=== PATIENT | female | born 1995 | race American Indian/Alaskan Native ===

== ENCOUNTER 2020-10-03 18:19 | Outpatient (CLI) | payer MEDICAID ==
[2020-10-03 19:04] VITALS: BP 128/77
--- NOTE | 2020-10-03 21:03 | Ultrasound Report ---
BIOPHYSICAL PROFILE breathing movements: 2/2 movements: 2/2 posture and tone tone: 2/2 Qualitative amniotic fluid volume: 2/2 heart rate: 130 bpm position: Cephalic Placenta: Anterior and fundal and free of the internal cervical os Total score: 8/8, within normal limits Signer Name: Selwyn Abraham MD Signed: 10/03/2020 8:58 PM Workstation Name: [email or web address]
== END 2020-10-03 20:31 | disposition home or self-care (01) ==
LOC: TRG 18:19 → APU 18:50 → TRG 20:31
DX: O36.8130 Decreased fetal movements, third trimester, not applicable or unspecified (principal); Z3A.38 38 weeks gestation of pregnancy
CPT/HCPCS: 59025; 76819

== ENCOUNTER 2020-10-06 12:59 | Outpatient (CLI) | payer MEDICAID ==
[2020-10-06] MEDS ORDERED: ACETAMINOPHEN 500 MG TAB PO ONE (14:30)
[2020-10-06 14:43] VITALS: BP 125/80
--- NOTE | 2020-10-06 16:28 | Event Note ---
Date: 10/06/20 Late entry: Nurse called me about patient prior to discharge and told me patient was not in labor (no cervical change) with reactive NST and normal BPs so patient was discharged home. I came back to hospital from office and reviewed BPs and saw that patient had had several elevated ones. Called patient on the phone and asked her to come back in to hospital for preeclamptic labs. Patient states she will come back to [facility] right away.
== END 2020-10-06 15:20 | disposition home or self-care (01) ==
LOC: TRG 12:59 → APU 13:01 → TRG 15:20
DX: Z34.93 Encounter for supervision of normal pregnancy, unspecified, third trimester (principal); Z3A.39 39 weeks gestation of pregnancy
CPT/HCPCS: 59025

== ENCOUNTER 2020-10-06 17:34 | Inpatient (IN) | payer MEDICAID ==
[2020-10-06 18:34] LABS: Amphetamine Screen,Urine PRESUMPTIVE NEGATIVE; Benzodiazepines Screen,Urine PRESUMPTIVE NEGATIVE; Cannabinoid Screen,Urine PRESUMPTIVE NEGATIVE; Cocaine Screen,Urine PRESUMPTIVE NEGATIVE; Methadone Screen,Urine PRESUMPTIVE NEGATIVE; Opiate Screen,Urine PRESUMPTIVE NEGATIVE
[2020-10-06 18:39] LABS: Bacteria,Urine 1+ /HPF (Negative); Bilirubin,Urine NEG (Negative); Blood,Urine SM (Negative); Color,Urine Yellow (Yellow); Protein,Urine <15 mg/dL mg/dL (Negative)
[2020-10-06 19:10] LABS: Basophils % (Auto) 0.2 % (0.0-1.8); Eosinophils # (Auto) 0.1 K/mm3 (0.0-0.4); Eosinophils % (Auto) 0.9 % (0.0-4.3); Hemoglobin 11.3 gm/dl (10.1-14.3); Lymphocytes # (Auto) 2.2 K/mm3 (1.2-5.4); Lymphocytes % (Auto) 20.9 % (13.4-35.0); Mean Corpuscular HGB Conc 33 % (30-34); Mean Corpuscular Volume 76 fl (79-97); Monocytes # (Auto) 0.5 K/mm3 (0.0-0.8); Monocytes % (Auto) 4.6 % (0.0-7.3); Platelet Count 262 K/mm3 (140-440); Red Blood Count 4.48 M/mm3 (3.65-5.03); Red Cell Distribution Width 17.6 % (13.2-15.2)
[2020-10-06 19:38] LABS: Alanine Aminotransferase 8 units/L (7-56); Albumin 3.5 g/dL (3.9-5); Blood Urea Nitrogen 5 mg/dL (7-17); Calcium 9.2 mg/dL (8.4-10.2); Hemolysis Index 9; Uric Acid 6.3 mg/dL (3.5-7.6)
[2020-10-06] MEDS ORDERED: fentaNYL 100 MCG/2 ML INJ IV PRN (19:46)
[2020-10-06] MEDS ORDERED: LOPERAMIDE 2 MG CAP PO PRN (19:46)
[2020-10-06] MEDS ORDERED: METHYLERGONOVINE MALEATE 0.2 MG/ML VIAL IM PRN (19:46)
[2020-10-06] MEDS ORDERED: CARBOPROST TROMETHAMINE 250 MCG/1 ML INJ IM PRN (19:46)
[2020-10-06] MEDS ORDERED: LIDOCAINE (2%) 20 MG/1 ML VIAL 20 ML MDV INFILTRATI ONE (19:46)
[2020-10-06] MEDS ORDERED: miSOPROStol 200 MCG TAB PR PRN (19:46)
[2020-10-06] MEDS ORDERED: ePHEDrine SULFATE 50 MG/1 ML INJ IV PRN (19:46)
[2020-10-06] MEDS ORDERED: TERBUTALINE 1 MG/1 ML INJ SUB-Q PRN (19:46)
[2020-10-06] MEDS ORDERED: OXYTOCIN 10 UNIT/1 ML INJ IM PRN (19:46)
[2020-10-06] MEDS ORDERED: ONDANSETRON 4 MG/2 ML INJ IV PRN (19:46)
[2020-10-06] MEDS ORDERED: ACETAMINOPHEN 325 MG TAB PO PRN (19:46)
[2020-10-06] MEDS ORDERED: BUTORPHANOL 2 MG/1 ML INJ IV PRN (19:46)
--- NOTE | 2020-10-06 19:58 | History and Physical Report ---
History of Present Illness Date of examination: 10/06/20 Date of admission: 10/06/20 Chief complaint: Contractions History of present illness: 25 year old presents to L&D with complaint of contractions. Patient denies LOF or vaginal bleeding. Patient reports active movement. Patient received care at [facility] and records are available. LMP unknown. EDC 10/13/20 (based on 12 week, 4 day US). 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 Blood type B+, antibody screen negative, rubella immune, RPR nonreactive, hepatitis B surface antigen negative, hepatitis C antibody negative, HIV negative, 1 hour sugar test 104 (repeat 127), chlamydia negative, gonorrhea negative, trichomonas negative, AFP negative, GBS negative. Past History Past Medical History: other (obesity, HSV 2, unbilical hernia) Past Surgical History: cholecystectomy, other (cyst removed left axilla, laparoscopy for ovarian cyst) [employer] History: herpes (on Valtrex for suppression; denies lesions or prodromal symptoms). denies: chlamydia, gonorrhea, hepatitis B, hepatitis C, HIV, syphilis, trichomonas Family/Genetic History: diabetes, hypertension, other (arthitis, asthma, thyroid disease) Social history: no significant social history, full code. denies: smoking, alcohol abuse, prescription drug abuse, IV drug use - Obstetrical History Expected Date of Delivery: 10/13/20 Actual Gestation: 39 Week(s) 0 Day(s) : 3 Para: 2 Hx # Term Pregnancies: 2 Number of Pregnancies: 0 Spontaneous Abortions: 0 Induced : 0 Number of Living Children: 2 Medications and Allergies Allergies Allergy/AdvReac Type Severity Reaction Status Date / Time No Known Allergies Allergy Verified 10/06/20 13:29 Active Meds: Active Medications Acetaminophen (Acetaminophen 325 Mg Tab) 650 mg PO Q4H PRN PRN Reason: Pain, Mild (1-3) Butorphanol Tartrate (Butorphanol 2 Mg/1 Ml Inj) 1 mg IV Q2H PRN PRN Reason: Pain, Moderate(4-6) LABOR PAIN Carboprost Tromethamine (Carboprost Tromethamine 250 Mcg/1 Ml Inj) 250 mcg IM ONCE PRN PRN Reason: Uterine Bleeding Ephedrine Sulfate (Ephedrine Sulfate 50 Mg/1 Ml Inj) 10 mg IV Q2M PRN PRN Reason: Hypotension Fentanyl (Fentanyl 100 Mcg/2 Ml Inj) 100 mcg IV Q2H PRN PRN Reason: Pain,Severe (7-10) LABOR PAIN Oxytocin/Sodium Chloride (Pitocin/Ns 30 Unit/500ml) 30 units in 500 mls @ 2 mls/hr IV TITR CHUCKIE; Protocol Lactated Ringer's (Lactated Ringers) 1,000 mls @ 125 mls/hr IV DIRECT CHUCKIE Oxytocin/Sodium Chloride (Pitocin/Ns 30 Unit/500ml) 30 units in 500 mls @ 40 mls/hr IV TITR CHUCKIE; Protocol Lidocaine (Lidocaine (2%) 20 Mg/1 Ml Vial 20 Ml Mdv) 20 ml INFILTRATI ONCE ONE Stop: 10/06/20 19:47 Loperamide HCl (Loperamide 2 Mg Cap) 2 mg PO ONCE PRN PRN Reason: give with Hemabate Methylergonovine Maleate (Methylergonovine Maleate 0.2 Mg/Ml Vial) 0.2 mg IM ONCE PRN PRN Reason: Uterine Bleeding Misoprostol (Misoprostol 200 Mcg Tab) 800 mcg MN ONCE PRN PRN Reason: Uterine Bleeding Ondansetron HCl (Ondansetron 4 Mg/2 Ml Inj) 4 mg IV Q8H PRN PRN Reason: Nausea And Vomiting Oxytocin (Oxytocin 10 Unit/1 Ml Inj) 10 unit IM ONCE PRN PRN Reason: Uterine Bleeding Terbutaline Sulfate (Terbutaline 1 Mg/1 Ml Inj) 0.25 mg SUB-Q ONCE PRN PRN Reason: Hyperstimulation/Hypertonicity Review of Systems All systems: negative (contractions) - Vital Signs Vital signs: Vital Signs Temp Pulse Resp BP Pulse Ox 98.3 F 98 H 20 121/78 99 10/06/20 17:56 10/06/20 17:56 10/06/20 17:56 10/06/20 17:56 10/06/20 17:56 Temp Pulse Resp BP Pulse Ox 98.3 F 90 20 121/73 99 10/06/20 17:56 10/06/20 19:33 10/06/20 17:56 10/06/20 19:33 10/06/20 19:21 - Physical Exam Abdomen: Positive: normal appearance, soft. Negative: distention, tenderness, guarding, rigidity Genitourinary (Female): Positive: normal external genitalia, normal perenium. Negative: perineal/vulvar lesions (no lesions noted on careful exam with bright light upon admission) Vagina: Positive: normal moisture Uterus: Positive: enlarged. Negative: tender Anus/Rectum: Positive: normal perianal skin Extremities: Positive: normal. Negative: tenderness, edema - Obstetrical FHR: category 1 Uterine Contraction Monitor Mode: External Cervical Dilatation: 5 Cervical Effacement Percentage: 60 station: -3 Uterine Contraction Pattern: Regular Uterine Contraction Intensity: Mild Results Result Diagrams: 10/06/20 Unknown 10/06/20 Unknown Abnormal lab results 10/06/20 10/06/20 Range/Units Unknown Unknown MCV 76 L (79-97) fl MCH 25 L (28-32) pg RDW 17.6 H (13.2-15.2) % Seg Neutrophils % 73.4 H (40.0-70.0) % Sodium 135 L (137-145) mmol/L BUN 5 L (7-17) mg/dL Glucose 102 H (65-100) mg/dL Lactate Dehydrogenase 238 H (91-180) units/L Albumin 3.5 L (3.9-5) g/dL All other labs normal. Assessment and Plan A: at 39 weeks gestation. Labor. GBS negative. HSV 2 positive, on Valtrex suppression. Class 3 obesity. Several mildly elevated blood pressures. P: Admit. EFM. Preeclamptic labs. Continue Valtrex suppression of HSV. Pitocin augmentation of labor.
[2020-10-06 20:00] LABS: BUN/Creatinine Ratio 8
[2020-10-06] MEDS ORDERED: OXYTOCIN DRIP 30 UNITS/500 ML BAG IV SCH ×2 (20:00)
[2020-10-06] MEDS: valACYclovir 500 MG TAB PO SCH (21:42)
[2020-10-06] MEDS: LACTATED RINGERS 1,000 ML IV SCH (23:09)
[2020-10-07] MEDS ORDERED: ePHEDrine SULFATE 50 MG/1 ML INJ IV PRN (00:01)
[2020-10-07] MEDS ORDERED: NALOXONE 2 MG/2 ML INJ IV PRN (00:01)
--- NOTE | 2020-10-07 00:03 | Anesthesia Consultation ---
Anesthesia Consult and Med Hx Date of service: 10/07/20 - Airway Anesthetic Teeth Evaluation: Good ROM Head & Neck: Adequate Mental/Hyoid Distance: Adequate Mallampati Class: Class III Intubation Access Assessment: Possibly Difficult - Pulmonary Exam CTA: Yes - Cardiac Exam Cardiac Exam: RRR - Pre-Operative Health Status ASA Pre-Surgery Classification: ASA3 Proposed Anesthetic Plan: Epidural - Pulmonary Hx Smoking: No Hx Asthma: No Hx Respiratory Symptoms: No SOB: No COPD: No Home Oxygen Therapy: No Hx Pneumonia: No Hx Sleep Apnea: No - Cardiovascular System Hx Hypertension: No Hx Coronary Artery Disease: No Hx Heart Attack/AMI: No Hx Angina: No Hx Percutaneous Transluminal Coronary Angioplasty (PTCA): No Hx Cardia Arrhythmia: No Hx Pacemaker: No Hx Internal Defibrillator: No Hx Valvular Heart Disease: No Hx Heart Murmur: No Hx Peripheral Vascular Disease: No - Central Nervous System Hx Neuromuscular Disorder: No Hx Seizures: No CVA: No Hx Back Pain: Yes Hx Psychiatric Problems: No - Gastrointestinal Hx Ulcer: No Hx Gastroesophageal Reflux Disease: Yes - Endocrine Hx Renal Disease: No Hx End Stage Renal Disease: No Hx Cirrhosis: No Hx Liver Disease: No Hx Insulin Dependent Diabetes: No Hx Non-Insulin Dependent Diabetes: No Hx Thyroid Disease: No Hx Hypothyroidism: No Hx Hyperthyroidism: No - Hematic Hx Anemia: No Hx Sickle Cell Disease: No - Other Systems Hx Alcohol Use: No Hx Substance Use: No Hx Cancer: No Hx Obesity: Yes
--- NOTE | 2020-10-07 00:05 | Progress Note ---
Labor Epidural - Labor Epidural Start Time: 23:22 Stop Time: 23:39 Performed by:: SARAY CHAVEZ Procedure: Patient is requesting a laboring epidural for laboring pain. Patient IDed, H&P reviewed, all questions and concerns were answered, and consent was signed. Timeout was performed at bedside. Patient in sitting position. Sterile prep and drape was performed. [3] ml of 1% lidocaine skin wheal at L[3]- L [4]. 18- gauge Farman epidural needle was advanced to loss of resistance with saline technique 8cm. Negative CSF negative blood. Epidural catheter advanced to [12] centimeters. [NEGATIVE] Aspiration [NEGATIVE] test dose. Sterile dressing applied. Patient tolerated procedure.
[2020-10-07] MEDS: LACTATED RINGERS 1,000 ML IV SCH ×3 (00:17→08:25)
[2020-10-07] MEDS ORDERED: fentaNYL-BUPIV 2 MCG/ML-0.125% 200 MCG/100 ML BAG EPIDURAL SCH (01:00)
[2020-10-07] MEDS ORDERED: CALCIUM CARBONATE 500 MG TAB CHEW PO ONE (05:36)
[2020-10-07] MEDS: valACYclovir 500 MG TAB PO SCH ×2 (09:08→22:11)
[2020-10-07 09:49] LABS: Bacteria,Urine 1+ /HPF (Negative); Bilirubin,Urine NEG (Negative); Blood,Urine SM (Negative); Color,Urine Yellow (Yellow); Protein,Urine <15 mg/dL mg/dL (Negative)
[2020-10-07 09:59] LABS: Hematocrit 31.2 % (30.3-42.9); Hemoglobin 10.2 gm/dl (10.1-14.3); Mean Corpuscular HGB Conc 33 % (30-34); Mean Corpuscular Volume 76 fl (79-97); Platelet Count 244 K/mm3 (140-440); Red Blood Count 4.13 M/mm3 (3.65-5.03); Red Cell Distribution Width 17.5 % (13.2-15.2)
[2020-10-07 10:15] LABS: Uric Acid 6.3 mg/dL (3.5-7.6)
[2020-10-07 10:16] LABS: Alanine Aminotransferase < 5 units/L (7-56)
[2020-10-07] MEDS ORDERED: PROMETHAZINE 25 MG TAB PO PRN (11:23)
[2020-10-07] MEDS ORDERED: ACETAMINOPHEN 325 MG TAB PO PRN (11:23)
[2020-10-07] MEDS ORDERED: MAGNESIUM HYDROXIDE (MOM) ORAL LIQD UDC PO PRN (11:23)
[2020-10-07] MEDS ORDERED: ONDANSETRON 4 MG/2 ML INJ IV PRN (11:23)
[2020-10-07] MEDS ORDERED: oxyCODONE /ACETAMINOPHEN 5-325MG TAB PO PRN (11:23)
[2020-10-07] MEDS ORDERED: WITCH HAZEL/ GLYCERIN PAD TP PRN (11:23)
[2020-10-07] MEDS ORDERED: diphenhydrAMINE 25 MG CAP PO PRN (11:23)
[2020-10-07] MEDS ORDERED: LANOLIN/ZINC/DIMETHICONE (LANSINOH) 7 GM TP PRN (11:23)
[2020-10-07] MEDS ORDERED: PROMETHAZINE 25 MG RECT SUPP PR PRN (11:23)
--- NOTE | 2020-10-07 11:29 | Procedure Note ---
OB Delivery Note - Delivery Date of Delivery: 10/07/20 Surgeon: RYAN LOONEY JR Estimated blood loss: other (150cc) - Vaginal Delivery presentation: vertex Delivery position: OA Intrapartum events: gestational hypertension Delivery induction: oxytocin Delivery augmentation: pitocin Delivery monitor: external FHT, external uterine Route of delivery: Delivery placenta: spontaneous Delivery cord: nuchal cord (body cord x 1, not reduced) Episiotomy: none Delivery laceration: none Anesthesia: epidural Delivery comments: Spontaneous vaginal delivery of male infant at 1107. Weight 3447 g. 21 inches. 8/9 Apgars. Terminal meconium at delivery. Body cord x1, not reduced prior to delivery. Intact perineum. Fundus firm. - Infant A at 1 minute: 8 at 5 minutes: 9 Infant Gender: Male
[2020-10-07] MEDS: IBUPROFEN 600 MG TAB PO SCH ×2 (11:45→22:11)
[2020-10-07] MEDS ORDERED: OXYTOCIN DRIP 30 UNITS/500 ML BAG IV SCH (12:00)
--- NOTE | 2020-10-07 18:03 | Post Anesthesia Evaluation ---
- Post Anesthesia Evaluation Patient Participated: Yes Airway Patent: Yes Stable Respiratory Function: Yes Nausea/Vomiting: No Temp > 96.8F: Yes Pain Manageable: Yes Adequeate Hydration: Yes Anesthesia Complications: No Block Receding Appropriately: Yes Patient on Ventilator: No
[2020-10-08 00:22] LABS: Hematocrit 32.6 % (30.3-42.9); Hemoglobin 10.5 gm/dl (10.1-14.3)
[2020-10-08] MEDS: IBUPROFEN 600 MG TAB PO SCH ×3 (00:56→13:40)
[2020-10-08 09:10] VITALS: BP 125/77
--- NOTE | 2020-10-08 09:29 | Progress Note ---
Assessment and Plan - Patient Problems (1) Status post vaginal delivery Current Visit: Yes Status: Acute Plan to address problem: Patient doing well day 1. Meeting day goals. Anticipate discharge in 24 hours Subjective - Subjective Date of service: 10/08/20 Principal diagnosis: PPD1 Interval history: Patient doing well day 1. Meeting day goals. Baby is doing well in the room. Patient reports: appetite normal, voiding normally, pain well controlled, flatus : doing well Objective - Vital Signs Latest vital signs: Vital Signs Temp Pulse Resp BP BP Pulse Ox 10/08/20 08:12 97.8 F 79 18 125/77 98 10/08/20 06:26 18 10/08/20 05:26 18 10/08/20 01:15 97.9 F 85 20 128/85 100 10/08/20 00:56 18 10/07/20 23:11 18 10/07/20 22:11 18 10/07/20 21:37 18 10/07/20 20:43 97.6 F 79 20 131/89 100 10/07/20 20:37 18 10/07/20 16:48 97.8 F 77 18 129/68 98 10/07/20 13:00 97.9 F 83 18 134/87 100 10/07/20 12:35 161 H 69 L 10/07/20 12:34 74 L 10/07/20 12:29 84 10/07/20 12:26 78 139/74 10/07/20 12:23 156 H 83 L 10/07/20 12:17 80 L 10/07/20 12:16 69 84 10/07/20 12:12 74 L 10/07/20 12:11 101 H 141/79 10/07/20 12:08 104 H 97 10/07/20 12:03 90 97 10/07/20 11:58 105 H 97 10/07/20 11:56 88 136/79 10/07/20 11:53 95 H 98 10/07/20 11:48 111 H 98 10/07/20 11:43 108 H 98 10/07/20 11:41 100 H 134/78 10/07/20 11:38 107 H 98 10/07/20 11:33 105 H 98 10/07/20 11:28 118 H 98 10/07/20 11:26 109 H 127/81 10/07/20 11:23 119 H 97 10/07/20 11:18 104 H 122/95 98 10/07/20 11:16 108 H 89 10/07/20 11:12 106 H 96 10/07/20 11:08 117 H 142/67 10/07/20 11:07 151 H 98 10/07/20 11:06 133 H 141/85 10/07/20 11:02 110 H 99 10/07/20 10:59 57 L 80 L 10/07/20 10:57 68 93 10/07/20 10:56 121 H 157/77 10/07/20 10:52 119 H 100 10/07/20 10:47 122 H 98 10/07/20 10:42 130 H 98 10/07/20 10:37 107 H 100 10/07/20 10:36 98 H 94 10/07/20 10:32 131 H 73 L 10/07/20 10:27 110 H 100 10/07/20 10:22 118 H 99 10/07/20 10:16 101 H 100 10/07/20 10:11 122 H 100 10/07/20 10:06 95 H 100 10/07/20 10:05 104 H 91 10/07/20 10:01 54 L 95 10/07/20 09:56 92 H 100 10/07/20 09:51 93 H 100 10/07/20 09:47 105 H 92 10/07/20 09:46 105 H 100 10/07/20 09:41 97 H 100 10/07/20 09:36 104 H 93 10/07/20 09:33 74 0 L 10/07/20 09:31 89 100 Intake and Output 10/07/20 10/08/20 10/08/20 23:59 07:59 15:59 Intake Total 1080 480 240 Output Total 200 Balance 880 480 240 Intake: Oral 720 480 240 Intake, Free Water 360 Output: Urine 200 Void 200 Other: Total, Intake Amount 240 240 240 Total, Output Amount 200 # Voids Void 1 1 1 - Exam Abdomen: Present: normal appearance, normal bowel sounds Uterus: Present: firm - Labs Labs: Abnormal lab results 10/07/20 10/07/20 10/07/20 Range/Units 09:30 09:30 09:30 WBC 11.5 H (4.5-11.0) K/mm3 MCV 76 L (79-97) fl MCH 25 L (28-32) pg RDW 17.5 H (13.2-15.2) % ALT < 5 L (7-56) units/L Lactate Dehydrogenase 293 H (91-180) units/L Urine WBC (Auto) 12.0 H (0.0-6.0) /HPF
--- NOTE | 2020-10-08 09:30 | Discharge Summary ---
Providers - Providers Date of Admission: 10/06/20 19:46 Date of discharge: 10/09/20 Attending physician: CATHI MILLIGAN MD Primary care physician: CATHI MILLIGAN MD Hospitalization Reason for admission: active labor Delivery: Episiotomy: none Laceration: none Incision: normal complications: none Discharge diagnosis: IUP at term delivered baby: male Hospital course: Patient presented in active labor and delivered spontaneously. Male infant. Patient was meeting goals and discharged in good condition on day 2. Condition at discharge: Good Disposition: DC-01 TO HOME OR SELFCARE - Discharge Diagnoses (1) Status post vaginal delivery Status: Acute Plan - Provider Discharge Summary Activity: routine Diet: routine Instructions: routine Additional instructions: [] Smoking cessation referral if applicable(refer to patient education folder for contact #) [] Refer to [facility] [address] Booklet Call your doctor immediately for: * Fever > 100.5 * Heavy vaginal bleeding ( >1 pad per hour) * Severe persistent headache * Shortness of breath * Reddened, hot, painful area to leg or breast * Drainage or odor from incision. * Keep incision clean and dry at all times and follow doctor's instructions regarding bathing/showering - Follow up plan Follow up: PRIMARY CARE, [Referring] - 6 Weeks
[2020-10-08] MEDS: valACYclovir 500 MG TAB PO SCH (13:41)
== END 2020-10-08 14:30 | disposition home or self-care (01) | DRG 774 ==
LOC: TRG 17:34 → APU 17:39 → LD 19:46 → TRG 19:46 → OB 10-07 12:42
PROC: 10E0XZZ Delivery of Products of Conception, External Approach (ICD-10-PCS; principal; 2020-10-07)
PROC: 3E033VJ Introduction of Other Hormone into Peripheral Vein, Percutaneous Approach (ICD-10-PCS; 2020-10-07)
PROC: 00HU33Z Insertion of Infusion Device into Spinal Canal, Percutaneous Approach (ICD-10-PCS; 2020-10-07)
PROC: 3E0R3BZ Introduction of Anesthetic Agent into Spinal Canal, Percutaneous Approach (ICD-10-PCS; 2020-10-07)
DX: O13.4 Gestational [pregnancy-induced] hypertension without significant proteinuria, complicating childbirth (principal); O98.32 Other infections with a predominantly sexual mode of transmission complicating childbirth; O99.62 Diseases of the digestive system complicating childbirth; Z37.0 Single live birth; O99.214 Obesity complicating childbirth; O69.89X0 Labor and delivery complicated by other cord complications, not applicable or unspecified; Z20.822 Contact with and (suspected) exposure to COVID-19; A60.09 Herpesviral infection of other urogenital tract; K21.9 Gastro-esophageal reflux disease without esophagitis; Z90.49 Acquired absence of other specified parts of digestive tract; Z83.3 Family history of diabetes mellitus; Z82.49 Family history of ischemic heart disease and other diseases of the circulatory system; Z3A.39 39 weeks gestation of pregnancy; Z82.61 Family history of arthritis; Z83.49 Family history of other endocrine, nutritional and metabolic diseases
CPT/HCPCS: 36415; 59025; 76819; 80053; 80307; 81001; 82565; 83615; 84450; 84460; 84550; 85014; 85018; 85025; 85027; 86850; 86900; 86901; 87086; G0378; J2405; J2590; J3010; J7120; U0003